=== PATIENT | male | born 1950 | race Caucasian/White ===

== ENCOUNTER 2018-10-04 13:51 | Emergency (ER) | payer MEDICARE, OTHER, SELFPAY ==
[2018-10-04 14:20] VITALS: BP 152/86; PULSE 82; RESP 12; TEMP 36.3; O2SAT 100
== END 2018-10-04 14:48 | disposition left against medical advice (07) ==
PROVIDERS: Emergency Provider Emergency Medicine
DX: R00.2 Palpitations (principal); Z53.20 Procedure and treatment not carried out because of patient's decision for unspecified reasons
CPT/HCPCS: 93005; 99282